=== PATIENT | male | born 1990 | race African-American/Black ===

== ENCOUNTER 2017-02-13 21:52 | Emergency (ER) | payer SELFPAY ==
[~2017-02-13] VITALS: Ht 157.5 cm; Wt 59.3 kg
[~2017-02-13 21:52] MED LIST: CEPH500C3 PO; IBUP600 PO
[2017-02-13 22:03] VITALS: BP 121/85; PULSE 71; RESP 16; TEMP 98.5; O2SAT 97
[2017-02-13 22:05] VITALS: BP 121/85; PULSE 71; RESP 16; TEMP 98.5; O2SAT 97
[2017-02-13] MEDS ORDERED: LIDOCAINE HCL 1% 30 ML VIAL INFIL ONE (23:15)
[2017-02-13] MEDS ORDERED: HYDR-3533 PO (23:22)
[2017-02-13] MEDS ORDERED: BACT800T5 PO (23:22)
--- NOTE | 2017-02-13 23:23 | PD ---
HPI Chief Complaint: Skin Problem Time Seen by Provider: 22:56 Travel History International Travel<30 days: No Contact w/Intl Traveler<30days: No Traveled to known affect area: No History of Present Illness HPI This 26-year-old male is complaining of a swollen area in the peroneal area. It 's been present since . It is quite painful fever.. PFSH Past Medical History Medical History: Denies Significant Hx Hx Anticoagulant Therapy: No Cardiovascular Problems: No Chemotherapy: No Cerebrovascular Accident: No Diabetes: No Diminished Hearing: No Respiratory: No Tetanus Vaccination: > 5 Years Influenza Vaccination: No Past Surgical History Surgical History: No Previous Surgery Hysterectomy: No Social History Alcohol Use: Yes (LIQUOR, OCCASIONALLY) Tobacco Use: Yes (1/2PPD) Substance Use: Yes (MARIJUANA OCCASIONALLY) Allergies-Medications (Allergen,Severity, Reaction): Coded Allergies: No Known Allergies (Verified , 02/13/17) Reported Meds & Prescriptions Reported Meds & Active Scripts Active No Active Prescriptions or Reported Medications Review of Systems General / Constitutional: No: Fever, Chills Eyes: No: Diploplia HENT: No: Headaches, Vertigo Cardiovascular: No: Chest Pain or Discomfort, Palpitations Respiratory: No: Cough Gastrointestinal: No: Nausea Genitourinary: No: Urgency, Frequency Musculoskeletal: No: Myalgias Skin: Positive Lumps, No Rash Physical Exam Narrative GENERAL: Well-developed male SKIN: Focused skin assessment warm/dry. HEAD: Atraumatic. Normocephalic. EYES: Pupils equal and round. No scleral icterus. No injection or drainage. ENT: No nasal bleeding or discharge. Mucous membranes pink and moist. NECK: Trachea midline. No JVD. CARDIOVASCULAR: Regular rate and rhythm. No murmur appreciated. RESPIRATORY: No accessory muscle use. Clear to auscultation. Breath sounds equal bilaterally. GASTROINTESTINAL: Abdomen soft, non-tender, nondistended. Hepatic and splenic margins not palpable. There is a 1 cm diameter pustule visible on the perineum just posterior to the scrotum MUSCULOSKELETAL: No obvious deformities. No clubbing. No cyanosis. No edema. NEUROLOGICAL: Awake and alert. No obvious cranial nerve deficits. Motor grossly within normal limits. Normal speech. PSYCHIATRIC: Appropriate mood and affect; insight and judgment normal. Data Data Last Documented VS Vital Signs Date Time Temp Pulse Resp B/P Pulse Ox O2 Delivery O2 Flow Rate FiO2 02/13/17 22:05 98.5 71 16 121/85 97 Orders Lidocaine 1% Inj (Xylocaine 1% Inj) (02/13/17 23:15) MDM Medical Decision Making Medical Screen Exam Complete: Yes Emergency Medical Condition: Yes Medical Record Reviewed: Yes Differential Diagnosis Differential includes abscess, cellulitis Narrative Course I&D didn't produce a moderate amount of purulent material Procedures Procedure Narrative After verbal consent was obtained the area was anesthetized with 1% lidocaine. An incision was made and a moderate amount of foul-smelling pus was obtained. 8 cm of quarter-inch packing was inserted. Diagnosis Primary Impression: Abscess of perineum Scripts Hydrocodone-Acetaminophen (Lortab)5-325 Mg Tab1-2 Tab PO Q6H PRN (PAIN) #20 TAB Ref 0 Prov:Noe Hutchison MD 02/13/17 Sulfamethoxazole-Trimethoprim (Bactrim DS)800-160 Mg Tab1 Tab PO BID #14 TAB Ref 0 Prov:Noe Hutchison MD 02/13/17 Disposition: 01 DISCHARGE HOME Condition: Stable Noe Hutchison MD February 13, 2017 23:22
[2017-02-13] MEDS ORDERED: LIDOCAINE HCL 1% 50 ML VIAL INFIL ONE (23:30)
== END 2017-02-13 23:42 | disposition home or self-care (01) ==
LOC: PHEFT 21:52
DX: L02.215 Cutaneous abscess of perineum (principal)
CPT/HCPCS: 10061